=== PATIENT | female | born 1955 | race Caucasian/White ===

== ENCOUNTER → 2021-01-21 | Outpatient (CLI) | payer MEDICARE, OTHER | LOC: MC.RAD 08:12 | DX: Z12.31 Encounter for screening mammogram for malignant neoplasm of breast (principal); R59.0 Localized enlarged lymph nodes ==

== ENCOUNTER → 2021-01-28 | Outpatient (CLI) | payer MEDICARE, OTHER | LOC: MC.RAD 07:56 | DX: R59.0 Localized enlarged lymph nodes (principal) ==

== ENCOUNTER → 2021-04-07 | Outpatient (CLI) | payer MEDICARE, OTHER | LOC: MC.RAD 08:20 | DX: R59.0 Localized enlarged lymph nodes (principal) ==

== ENCOUNTER → 2021-05-03 | Outpatient (CLI) | payer MEDICARE, OTHER | LOC: MC.RAD 04-26 08:00 | DX: R59.0 Localized enlarged lymph nodes (principal) | CPT/HCPCS: A4648 ==